=== PATIENT | male | born 1985 | race Caucasian/White ===

== ENCOUNTER 2017-02-17 17:27 | Emergency (ER) | payer OTHER ==
[~2017-02-17] VITALS: Ht 180.3 cm; Wt 84.0 kg
[2017-02-17 17:47] VITALS: BP 116/81; PULSE 89; RESP 16; TEMP 98.1; O2SAT 100
--- NOTE | 2017-02-17 18:39 | PD ---
HPI . Left arm infection (Lakesha Miller) Chief Complaint: Lump, Cyst, Hernia Time Seen by Provider: 18:40 (Lakesha Miller) Time Seen by Provider: 18:38 (Dhara Valdes MD) Travel History International Travel<30 days: No Contact w/Intl Traveler<30days: No Traveled to known affect area: No (Lakesha Miller) History of Present Illness HPI 31-year-old male witha past medical history here with complaints of left arm swelling and infection. Patient says he tried to inject Decadron for muscle building purposes into his left arm for a steroid effect and used a dirty needle that he had previously used. He also ordered the Decadron online and is not certain if that's what the actual medication was. He is here because he is concerned about infection. He denies any fever or chills. He does have some tenderness over this area. (Lakesha Miller) PFSH Past Medical History Medical History: Denies Significant Hx (Lakesha Miller) Social History Tobacco Use: Yes (Lakesha Miller) Allergies-Medications (Allergen,Severity, Reaction): Coded Allergies: No Known Allergies (Unverified , 02/17/17) Reported Meds & Prescriptions Reported Meds & Active Scripts Active Bactrim DS (Sulfamethoxazole-Trimethoprim) 800-160 Mg Tab 1 Tab PO BID (Dhara Valdes MD) Reported Meds & Prescriptions Reported Meds & Active Scripts Active Bactrim DS (Sulfamethoxazole-Trimethoprim) 800-160 Mg Tab 1 Tab PO BID (Lakesha Miller) Review of Systems General / Constitutional: No: Fever Eyes: No: Visual changes HENT: No: Headaches Cardiovascular: No: Chest Pain or Discomfort Respiratory: No: Shortness of Breath Gastrointestinal: No: Abdominal Pain Genitourinary: No: Dysuria Musculoskeletal: No: Pain Skin: Positive Other (left arm cellulitis), No Rash Neurologic: No: Weakness Psychiatric: No: Depression Endocrine: No: Polydipsia Hematologic/Lymphatic: No: Easy Bruising (Lakesha Miller) Physical Exam Narrative GENERAL: AAO x 3, no acute distress, Well-nourished, well-developed patient. SKIN: Warm and dry. No visible rashes or bruising. HEAD: Normocephalic and atraumatic. EYES: No scleral icterus. No injection or drainage. ENT: No nasal drainage noted. Mucous membranes pink. Airway patent. NECK: Supple, trachea midline. No JVD. CARDIOVASCULAR: Regular rate and rhythm without murmurs, gallops, or rubs. RESPIRATORY: Breath sounds equal bilaterally. No accessory muscle use. No rhonchi or rales. GASTROINTESTINAL: Abdomen soft, non-tender, nondistended. EXTREMITIES: No cyanosis or edema. left arm distal humerus: superficial swelling that is erythematous and warm to touch, there is a nonfluctuant induration without definitive head or fluid collect. BACK: Nontender without obvious deformity. No CVA tenderness. PSYCH: AAO x 3, normal affect. (Lakesha Miller) [facility] Medical Decision Making Medical Screen Exam Complete: Yes Emergency Medical Condition: Yes Medical Record Reviewed: Yes (no prior visit) Differential Diagnosis cellulitis, early abscess, less likely sepsis Narrative Course 31-year-old male witha past medical history here with complaints of left arm swelling and infection. Patient says he tried to inject Decadron for muscle building purposes into his left arm for a steroid effect and used a dirty needle that he had previously used. He also ordered the Decadron online and is not certain if that's what the actual medication was. He is here because he is concerned about infection. He denies any fever or chills. He does have some tenderness over this area. Patient seen and examined. He does appear to have a cellulitis to the left distal humerus/upper arm superficially. There is no definitive abscess formation. I explained to patient that I cannot cut this area at this time. I advised warm compresses and if a head forms, for him to return to the emergency department for incision and drainage. In the meantime I will start him on antibiotics cover MRSA. Patient tells me that he does not get paid until Thursday and is requesting something for free. Advised patient not to use corticosteroids for muscle building purposes. Also advised against the use of contaminated needle. Patient verbalized understanding of instructions, questions were answered, and thanked me for their care. I advised them if their condition worsens, please return to the nearest emergency room for further care. (Lakesha Miller) Diagnosis Primary Impression: Left arm cellulitis Patient Instructions: General Instructions Additional Instructions: [place] for worsening signs of infection which include increased redness, increased warmth, purulent drainage, increased swelling or streaking. Apply warm compresses to this area. If there is a head formation, return to the emergency department for drainage. Refrain from using corticosteroids for bodybuilding purposes. Refrain from using contaminated needles. Med/Other Pt SpecificInfo: Prescription(s) given (Lakesha Miller) Scripts Sulfamethoxazole-Trimethoprim (Bactrim DS)800-160 Mg Tab1 Tab PO BID #20 TAB Prov:Dhara Valdes MD 02/17/17 Disposition: 01 DISCHARGE HOME Condition: Stable Lakesha Miller Feb 17, 2017 18:39 Dhara Valdes MD Mar 01, 2017 07:23 Sulfamethoxazole-Trimethoprim (Bactrim DS)800-160 Mg Tab1 Tab PO BID #20 TAB Prov:Dhara Valdes MD 02/17/17 Disposition: 01 DISCHARGE HOME Condition: Stable Lakesha Miller Feb 17, 2017 18:39
[2017-02-17] MEDS ORDERED: BACT800T5 PO (18:49)
== END 2017-02-17 19:00 | disposition home or self-care (01) ==
LOC: PHEFT 17:27
DX: L03.114 Cellulitis of left upper limb (principal); W46.1XXA Contact with contaminated hypodermic needle, initial encounter; Y93.89 Activity, other specified; Y92.89 Other specified places as the place of occurrence of the external cause; Y99.8 Other external cause status
CPT/HCPCS: 99282